=== PATIENT | female | born 1950 | race Caucasian/White ===

== ENCOUNTER 2017-12-04 04:55 | Inpatient (IN) | payer OTHER ==
[~2017-12-04] VITALS: Ht 154.9 cm; Wt 77.1 kg
[~2017-12-04 04:55] MED LIST: BUSPIRONE HCL10 MG PO; COZAAR100 MG PO; INDAPAMIDE2.5 MG PO; LEVO-T25 MCG PO; LEXAPRO20 MG PO; LUNESTA3 MG PO; SEROQUEL200 MG PO; SIMVASTATIN10 MG PO
[2017-12-05] MEDS ORDERED: GABAPENTIN800 MG PO (13:33)
[2017-12-05] MEDS ORDERED: DOCUSATE SODIU100 MG PO (13:33)
[2017-12-05] MEDS ORDERED: AMOX-CLAV 875-1 EACH PO (13:34)
[2017-12-05] MEDS ORDERED: PERCOCET 5-3251 EACH PO (13:35)
[2017-12-05] MEDS ORDERED: CLONAZEPAM1 MG PO (13:35)
[2017-12-05] MEDS ORDERED: MEDROLPACK PO (15:41)
[2017-12-05] MEDS ORDERED: ACETAMINOPHEN-1 EAC2 PO (15:41)
== END 2017-12-05 17:34 | DRG 455 ==
LOC: O/R 04:55 → SURH 10:15 → PED 16:15
PROVIDERS: Orthopaedic Surgery Orthopaedic Surgery of the Spine
PROC: 0SG1071 Fusion of 2 or more Lumbar Vertebral Joints with Autologous Tissue Substitute, Posterior Approach, Posterior Column, Open Approach (ICD-10-PCS; 2017-12-04)
PROC: 0ST40ZZ Resection of Lumbosacral Disc, Open Approach (ICD-10-PCS; 2017-12-04)
PROC: 0SG30AJ Fusion of Lumbosacral Joint with Interbody Fusion Device, Posterior Approach, Anterior Column, Open Approach (ICD-10-PCS; 2017-12-04)
PROC: 07DS3ZZ Extraction of Vertebral Bone Marrow, Percutaneous Approach (ICD-10-PCS; 2017-12-04)
PROC: 0SG30A0 Fusion of Lumbosacral Joint with Interbody Fusion Device, Anterior Approach, Anterior Column, Open Approach (ICD-10-PCS; principal; 2017-12-04 10:15)
DX: M47.27 Other spondylosis with radiculopathy, lumbosacral region (principal); M48.07 Spinal stenosis, lumbosacral region; M43.17 Spondylolisthesis, lumbosacral region; M51.17 Intervertebral disc disorders with radiculopathy, lumbosacral region; I10 Essential (primary) hypertension; E03.8 Other specified hypothyroidism; E11.9 Type 2 diabetes mellitus without complications

== ENCOUNTER 2019-05-27 07:33 | Inpatient (IN) | payer OTHER ==
[~2019-05-27] VITALS: Ht 154.9 cm; Wt 71.7 kg
[~2019-05-27 07:33] MED LIST changes: +ACETAMINOPHEN-1 EAC2 PO; +AMOX-CLAV 875-1 EACH PO; +CLONAZEPAM1 MG PO; +DOCUSATE SODIU100 MG PO; +GABAPENTIN800 MG PO; +MEDROLPACK PO; +PERCOCET 5-3251 EACH PO
[2019-06-05] MEDS ORDERED: ELIQUIS2.5 MG PO (13:41)
[2019-06-05] MEDS ORDERED: PERCOCET 10-321 EACH PO (13:41)
[2019-06-05] MEDS ORDERED: DUI500 PO (13:41)
== END 2019-06-05 18:19 | DRG 470 ==
LOC: ADM 07:45 → EDSTATUS 07:45 → SURG 06-03 05:00 → O/R 06-03 05:00 → SURH 06-03 07:00 → SURG 06-03 13:46
PROVIDERS: ADMIT Orthopaedic Surgery
PROC: 0MNN0ZZ Release Right Knee Bursa and Ligament, Open Approach (ICD-10-PCS; 2019-06-03)
PROC: 0SRC0J9 Replacement of Right Knee Joint with Synthetic Substitute, Cemented, Open Approach (ICD-10-PCS; principal; 2019-06-03 07:00)
DX: M17.11 Unilateral primary osteoarthritis, right knee (principal); M80.00XA Age-related osteoporosis with current pathological fracture, unspecified site, initial encounter for fracture; D62 Acute posthemorrhagic anemia; M22.11 Recurrent subluxation of patella, right knee; I10 Essential (primary) hypertension; Z96.651 Presence of right artificial knee joint; M51.37 Other intervertebral disc degeneration, lumbosacral region; E11.9 Type 2 diabetes mellitus without complications